=== PATIENT | female | born 1935 | race Caucasian/White ===

== ENCOUNTER 2017-11-25 10:19 | Day surgery (SDC) | payer OTHER ==
[~2017-11-25] VITALS: Ht 162.6 cm; Wt 56.8 kg
[~2017-11-25 10:19] MED LIST: AMLO10 PO; AMLO5 PO; ASPI325 PO; ASPI81CH PO; ATOR80 PO; CALCA500CH PO; CEPH500 PO; CLOP75 PO; EXTRA STRENGTH500 MG PO; FERR325 PO; FERROUS SULFATE PO; FURO40 PO; HYDHCL25 PO; METO50ER PO; MONT10T PO; MUPI2TC TOP; Micro-K10 MEQ PO; Novolin R100 UNIT/M SC; PANT40 PO; Prinivil10 MG PO; QVAR7.3 G1 INH; SACC250C PO; SPIR25 PO; THEO200ERA PO; TRAM50 PO; Ventolin Soln3 ML INH; ZANTAC PO
[2017-11-25] MEDS ORDERED: CLOP75 (11:29)
== END 2017-11-25 13:23 | disposition home or self-care (01) ==
LOC: ORSCSDS 10:19
PROVIDERS: Internal Medicine Gastroenterology
PROC: 0DBM8ZX Excision of Descending Colon, Via Natural or Artificial Opening Endoscopic, Diagnostic (ICD-10-PCS; principal; 2017-11-25 11:45)
PROC: 0DBL8ZX Excision of Transverse Colon, Via Natural or Artificial Opening Endoscopic, Diagnostic (ICD-10-PCS; principal; 2017-11-25 11:45)
PROC: 0DBN8ZX Excision of Sigmoid Colon, Via Natural or Artificial Opening Endoscopic, Diagnostic (ICD-10-PCS; principal; 2017-11-25 11:45)
PROC: 0DBB8ZX Excision of Ileum, Via Natural or Artificial Opening Endoscopic, Diagnostic (ICD-10-PCS; principal; 2017-11-25 11:45)
DX: Z85.038 Personal history of other malignant neoplasm of large intestine (principal); D12.5 Benign neoplasm of sigmoid colon; D12.4 Benign neoplasm of descending colon; K63.5 Polyp of colon; K64.8 Other hemorrhoids; D50.9 Iron deficiency anemia, unspecified; I10 Essential (primary) hypertension; E78.5 Hyperlipidemia, unspecified; J45.909 Unspecified asthma, uncomplicated; K21.9 Gastro-esophageal reflux disease without esophagitis; Z79.899 Other long term (current) drug therapy
CPT/HCPCS: 88305; J7120

== ENCOUNTER 2019-01-10 12:17 | Emergency (ER) | payer OTHER ==
[~2019-01-10] VITALS: Ht 165.1 cm; Wt 72.6 kg
[~2019-01-10 12:17] MED LIST changes: +CLOP75; -FERR325 PO; +IRON236 MG PO
[2019-01-10] MEDS ORDERED: THEO400ER PO (12:58)
[2019-01-10] MEDS ORDERED: Norco 5-325 Ta1 EACH PO (12:59)
[2019-01-10] MEDS ORDERED: Zantac150 MG PO (13:00)
[2019-01-10] MEDS ORDERED: ANTI-DIARR1 MG/7.5 M PO (13:01)
[2019-01-10] MEDS ORDERED: THERA1 EACH PO (13:03)
[2019-01-10] MEDS ORDERED: ASCO500 PO (13:03)
[2019-01-10] MEDS ORDERED: GABA300 PO ×2 (13:04→13:05)
[2019-01-10] MEDS ORDERED: Cyclobenzaprine5 MG PO (14:35)
== END 2019-01-10 15:30 | disposition home or self-care (01) ==
LOC: ER 12:17
DX: M25.551 Pain in right hip (principal); Z88.2 Allergy status to sulfonamides; Z79.899 Other long term (current) drug therapy; Z79.82 Long term (current) use of aspirin; Z79.4 Long term (current) use of insulin; D64.9 Anemia, unspecified; I12.9 Hypertensive chronic kidney disease with stage 1 through stage 4 chronic kidney disease, or unspecified chronic kidney disease; N18.3 Chronic kidney disease, stage 3 (moderate); K21.9 Gastro-esophageal reflux disease without esophagitis; E78.5 Hyperlipidemia, unspecified
CPT/HCPCS: 73502; 96372; 99283-25; J3010

== ENCOUNTER 2019-01-21 07:26 | Inpatient (IN) | payer OTHER ==
[~2019-01-21] VITALS: Ht 167.6 cm; Wt 61.2 kg
[~2019-01-21 07:26] MED LIST changes: +ALBU90OI INH; +ANTI-DIARR1 MG/7.5 M PO; +ASCO500 PO; +CALCIUM 600 +1 EA11 PO; +Cyclobenzaprine5 MG PO; +FURO20 PO; +GABA300 PO; +LISI20 PO; +Norco 5-325 Ta1 EACH PO; +ONE A DAY WOMENS PO; +POTCHL10ER PO; +QVAR REDIHALE10.6 G1 INH; +THEO400ER PO; +THERA1 EACH PO; +Toprol Xl50 MG PO; +Zantac150 MG PO
[2019-01-21] MEDS ORDERED: Zantac150 MG (08:11)
--- NOTE | 2019-01-21 08:15 | NUR ---
INTO SDS VIA WHEELCHAIR. PT UNABLE TO STAND FOR WEIGHT. PT REPORTS 5/10 RIGHT HIP PAIN. PT HEAVY ASSIST OUT OF WHEELCHAIR/TRANSFER TO BED. 2 PERSONS REQUIRED TO ASSIST PT WITH TRANSFER AND CHANGING. LUNGS CLEAR. PT DENIES SOB. SATS>90% ON RA. HISTORY AND ALLERGIES REVIEWED. NPO STATUS CONFIRMED. Patient reports completing Chlorhexadine shower X2 prior to admission to hospital.Surgical site prepped with 2% Chlorhexidine cloth wipe.NOSYN AND PERIDEX PER TOTAL HIP REPLACEMENT PROTOCOL. Pre-Op teaching done. Pt verbalizes understanding.
--- NOTE | 2019-01-21 08:19 | NUR ---
PT GIVEN PRE OP DOSE OF BOTH TYLENOL 1000 MG PO X 1 AND OXYCONTIN 10 MG PO X 1. KNEES ELEVATED ON PILLOW FOR PT COMFORT.
--- NOTE | 2019-01-21 09:03 | NUR ---
SBP TRENDING 200'S/90-100'S. PT STATES THAT SHE IS IN A GREAT DEAL OF PAIN AND FEELS THAT HER ELEVATED BP IS DUE TO PAIN. WILL NOTIFY .
[2019-01-21] MEDS ORDERED: Ferrous Sulfat325 M2 PO (15:24)
--- NOTE | 2019-01-21 19:03 | NUR ---
SHIFT SUMMARY PT A&OX4, VSS, POD#0 R JESSICA, AQUACEL CDI. PAIN MANAGED WITH 1 NORCO. RAFAL PO, DENIES N&V. UP TO CHAIR. PHYSICAL THERAPY EVAL'D. AMB W/FWW TO BRP. VOIDING WELL. REPORT GIVEN TO FREDDIE KLINE.
[2019-01-22 06:01] LABS: BASOPHILS ABSOLUTE AUTO 0.01 K/mm3 (0.00-0.23); BASOPHILS PERCENT AUTO 0 % (0-2); EOSINOPHILS PERCENT AUTO 0 % (0-6); Hematocrit 30.6 % (33.0-51.0); Hemoglobin 10.1 g/dL (11.5-16.0); IMMATURE GRAN ABSOLUTE AUTO 0.06 K/mm3 (0.00-0.10); IMMATURE GRAN PERCENT AUTO 1 % (0-1); LYMPHOCYTES ABSOLUTE AUTO 1.12 K/mm3 (0.84-5.20); LYMPHOCYTES PERCENT AUTO 9 % (21-46); MONOCYTES ABSOLUTE AUTO 1.05 K/mm3 (0.16-1.47); MONOCYTES PERCENT AUTO 9 % (4-13); Mean Corpuscular HGB 28.5 pg (26.0-34.0); Mean Platelet Volume 8.8 fL (9.1-12.4); NEUTROPHILS ABSOLUTE AUTO 9.91 K/mm3 (1.96-9.15); NEUTROPHILS PERCENT AUTO 82 % (41-73); Platelet Count 366 K/mm3 (150-400); RDW Coefficient Variation 13.5 % (11.7-14.2); RDW Standard Deviation 42.2 fL (35.1-46.3); Red Blood Cell Count 3.55 M/mm3 (3.80-5.20); White Blood Cell Count 12.15 K/mm3 (4.00-11.30)
[2019-01-22 06:02] LABS: Mean Corpuscular Volume 86 fL (80-100)
[2019-01-22 06:18] LABS: Anion Gap 10 mmol/L (6-16); Blood Urea Nitrogen 28 mg/dL (8-24); Bun/Creatinine Ratio 29.7 (12.0-20.0); CO2, Blood 23 mmol/L (21-32); Calcium, Blood 8.6 mg/dL (8.5-10.1); Chloride, Blood 103 mmol/L (98-108); Creatinine, Blood 0.94 mg/dL (0.40-1.00); Glomerular Filtration Rate >60 (60-); Glucose, Blood 144 mg/dL (70-99); Magnesium, Blood 2.1 mg/dL (1.6-2.4); Potassium, Blood 4.6 mmol/L (3.5-5.5); Sodium, Blood 136 mmol/L (136-145)
--- NOTE | 2019-01-22 06:44 | NUR ---
SUMMARY POD #1 R JESSICA DRSG REMAINS C/D/I. PT IS AMBULATING WITH 1 ASSIST, FWW, GAIT BELT. TOLERATING PO INTAKE. PAIN MANAGED WITH PO NORCO & TORADOL. VOIDING WNL.
--- NOTE | 2019-01-22 18:16 | NUR ---
SHIFT SUMMARY PAIN HAS BEEN MANAGED WITH PO PAIN MEDICATION THIS SHIFT. PT IS A 1 ASSIST WITH WALKER AND GAIT BELT WHEN OOB. VSS. PLAN FOR HOME TOMORROW AFTER AM THERAPY. WILL MONITOR UNTIL REPORT TO ONCOMING RN.
--- NOTE | 2019-01-23 07:14 | NUR ---
SHIFT SUMMARY RESTED SOMEWHAT OK, ABLE TO REPOSITION SELF IN BED. AMBULATED SELF TO BATHROOM SEVERAL TIME THIS SHIFT WITH STANDBY ASSIST. DENEIS PAIN OR DISCOMFORT AT THIS TIME. DRESSING TO RIGHT HIP IS C/D/I. DENIES FURTHER NEEDS AT THIS TIME. SAFETY MEASURES IN PLACE. WILL CONTINUE TO MONITOR.
[2019-01-23] MEDS ORDERED: Aspir 8181 MG (10:55)
--- NOTE | 2019-01-23 11:41 | NUR ---
DISCHARGE WRITTEN AND VERBAL DISCHARGE INSTRUCTIONS PROVIDED FOR PT AND FAMILY. THEY REPORTED UNDERSTANDING AFTER QUESTIONS WERE ANSWERED. DRESSINGS PROVIDED. PT ALERT ORIENTED AND CONTENT WITH DISCHARGE PLAN. PT ESCORTED OUT IN W/C BY GABRIELLA ASHLEY.
--- NOTE | 2019-01-24 13:14 | NUR ---
01/24/19 1314 Milla Mack VERIFICATIONS: EDIT CHART.
== END 2019-01-23 11:40 | disposition home or self-care (01) | DRG 470 ==
LOC: SURS 07:26 → PRE IP 09:00 → SURS 13:58
PROVIDERS: ADMIT Orthopaedic Surgery
PROC: 0SR90JZ Replacement of Right Hip Joint with Synthetic Substitute, Open Approach (ICD-10-PCS; principal; 2019-01-21 09:00)
PROC: 0SP904Z Removal of Internal Fixation Device from Right Hip Joint, Open Approach (ICD-10-PCS; 2019-01-21 09:00)
DX: M87.851 Other osteonecrosis, right femur (principal); I25.2 Old myocardial infarction; Z95.5 Presence of coronary angioplasty implant and graft; Z85.038 Personal history of other malignant neoplasm of large intestine; K21.9 Gastro-esophageal reflux disease without esophagitis; E78.5 Hyperlipidemia, unspecified; J45.909 Unspecified asthma, uncomplicated
CPT/HCPCS: 36415; 72170; 80048; 82947; 83735; 85025; 88305; 88311; 93005; 93010; 97110; 97116; 97161; 97530; A9270-GY; C1776; J0171; J0690; J0735; J1100; J1885; J2370; J2405; J2704; J2795; J3010; J7120

== ENCOUNTER 2019-04-29 09:03 | Day surgery (SDC) | payer OTHER ==
[~2019-04-29] VITALS: Ht 167.6 cm; Wt 61.0 kg
[~2019-04-29 09:03] MED LIST changes: +Aspir 8181 MG; +Ferrous Sulfat325 M2 PO; +Zantac150 MG
[2019-04-29] MEDS ORDERED: TRAM50 (09:46)
--- NOTE | 2019-04-29 16:55 | NUR ---
AMBULATED TO BATHROOM. TOLERATED WELL. NO BLEEDING RIGHT GROIN. SITE SOFT NONTENDER.
--- NOTE | 2019-04-29 17:10 | NUR ---
DISCHARGE INSTRUCTIONS GIVEN WITH WRITTEN AND VERBAL UNDERSTANDING.
--- NOTE | 2019-04-29 17:45 | NUR ---
IV REMOVED INTACT. 2X2, COBAN AND MANUAL PRESSURE HELD.
--- NOTE | 2019-04-29 18:05 | NUR ---
DISCHARGE HOME VIA WHEELCHAIR. DAUGHTER DRIVING.
== END 2019-04-29 17:45 | disposition home or self-care (01) ==
LOC: MHTC 09:03
DX: I25.10 Atherosclerotic heart disease of native coronary artery without angina pectoris (principal); T82.855A Stenosis of coronary artery stent, initial encounter; E11.9 Type 2 diabetes mellitus without complications; I10 Essential (primary) hypertension; Z79.02 Long term (current) use of antithrombotics/antiplatelets; Z79.899 Other long term (current) drug therapy; Z88.2 Allergy status to sulfonamides; Z88.8 Allergy status to other drugs, medicaments and biological substances
CPT/HCPCS: 76937; 93454; 99152; 99153; C1760; C1769; C1894; J1644; J2250; J3010; J7030; Q9967

== ENCOUNTER → 2020-07-23 | Outpatient (CLI) | payer OTHER ==
[~2020-07-23] MED LIST changes: +TRAM50
== END | disposition home or self-care (01) ==
LOC: PLD 12:25 → LAB SHORT 12:25
DX: C44.629 Squamous cell carcinoma of skin of left upper limb, including shoulder (principal)
CPT/HCPCS: 88305

== ENCOUNTER 2021-07-20 13:31 | Inpatient (IN) | payer OTHER ==
[~2021-07-20] VITALS: Ht 167.6 cm; Wt 70.8 kg
[2021-07-20 13:52] LABS: Base Excess Venous -6.5 mmol/L; Bicarbonate Venous 18.5 mmol/L (24.0-30.0); PCO2 Venous 46.8 mmHg (38-42); PO2 Venous 37.8 mmHg (38-42)
[2021-07-20 13:53] LABS: pH Blood Venous 7.25 (7.34-7.37)
[2021-07-20 14:08] LABS: BASOPHILS ABSOLUTE AUTO 0.02 K/mm3 (0.00-0.23); BASOPHILS PERCENT AUTO 0 % (0-2); EOSINOPHILS PERCENT AUTO 0 % (0-6); Hematocrit 40.6 % (33.0-51.0); Hemoglobin 13.3 g/dL (11.5-16.0); IMMATURE GRAN ABSOLUTE AUTO 0.09 K/mm3 (0.00-0.10); IMMATURE GRAN PERCENT AUTO 1 % (0-1); LYMPHOCYTES ABSOLUTE AUTO 2.89 K/mm3 (0.84-5.20); LYMPHOCYTES PERCENT AUTO 21 % (21-46); MONOCYTES ABSOLUTE AUTO 0.29 K/mm3 (0.16-1.47); MONOCYTES PERCENT AUTO 2 % (4-13); Mean Corpuscular HGB 29.1 pg (26.0-34.0); Mean Corpuscular HGB Conc 32.8 g/dL (31.5-36.5); Mean Corpuscular Volume 89 fL (80-100); Mean Platelet Volume 9.9 fL (9.1-12.4); NEUTROPHILS ABSOLUTE AUTO 10.53 K/mm3 (1.96-9.15); NEUTROPHILS PERCENT AUTO 76 % (41-73); Platelet Count 428 K/mm3 (150-400); RDW Coefficient Variation 13.2 % (11.7-14.2); RDW Standard Deviation 42.9 fL (35.1-46.3); Red Blood Cell Count 4.57 M/mm3 (3.80-5.20); White Blood Cell Count 13.82 K/mm3 (4.00-11.30)
[2021-07-20 14:38] LABS: Albumin, Blood 3.3 g/dL (3.4-5.0); Albumin/Globulin Ratio 0.8 (0.8-1.8); Bilirubin, Total 0.2 mg/dL (0.1-1.0); Bun/Creatinine Ratio 34.4 (12.0-20.0); Calcium, Blood 8.7 mg/dL (8.5-10.1); Creatinine, Blood 1.31 mg/dL (0.40-1.00); Globulin, Blood 3.9 g/dL (2.2-4.0); Magnesium, Blood 2.1 mg/dL (1.6-2.4); Potassium, Blood 4.9 mmol/L (3.5-5.5); Total Protein, Blood 7.2 g/dL (6.4-8.2); Troponin I 0.133 ng/mL (0.000-0.040)
[2021-07-20] MEDS ORDERED: LISI20 PO (14:51)
[2021-07-20] MEDS ORDERED: Norco 5-325 Ta1 EACH PO (14:53)
[2021-07-20 15:34] LABS: Influenza A, PCR NEGATIVE (NEGATIVE); Influenza B, PCR NEGATIVE (NEGATIVE); Resp Syncytial Virus, PCR NEGATIVE (NEGATIVE); SARS-Cov-2 (COVID-19) PCR, MMC NEGATIVE (NEGATIVE)
--- NOTE | 2021-07-20 18:38 | NUR ---
PT ARRIVAL/SHIFT SUMMARY PT ARRIVED TO UNIT FROM ED AT END OF SHIFT. PT ALERT AND ORIENTED. HR STABLE. BP STABLE. NO CP OR PRESSURE REPORTED. OXYGEN SATURATION MAINTAINED ABOVE 92% ON RA. PT ABLE TO TURN SELF IN BED NEEDED. WILL CONT TO MONITOR UNTIL REPORT GIVEN TO NIGHTSHIFT RN.
[2021-07-20 18:53] LABS: Anti-Xa UFH, PHA Monitoring <0.10 IU/mL; International Normalized Ratio 0.99; Prothrombin Time Results 10.4 Sec (9.7-11.5)
[2021-07-20 21:00] LABS: Source, Urine Clean Catch
[2021-07-20 21:03] LABS: Bilirubin, Urine Neg (Neg); Blood, Urine Neg (Neg); Glucose Qualitative, Urine Neg (Neg); Ketones, Urine Neg (Neg); Leukocyte Esterase, Urine 2+ (Neg); Nitrite, Urine Neg (Neg); Protein, Urine Neg (Neg); Urobilinogen, Urine NORM (Normal)
[2021-07-20 21:06] LABS: Appearance, Urine Clear (Clear); Color, Urine Pale Yellow (P-Yellow)
[2021-07-20 21:16] LABS: Bacteria Few /hpf; Red Blood Cells, Urine 0-2 /hpf (0-2); Squamous Epithelial Cells Few /hpf (Few)
[2021-07-20 21:17] LABS: Amorphous Light (0-Heavy); Mucus Light (0-Heavy)
[2021-07-21 02:00] LABS: BASOPHILS ABSOLUTE AUTO 0.01 K/mm3 (0.00-0.23); BASOPHILS PERCENT AUTO 0 % (0-2); EOSINOPHILS PERCENT AUTO 0 % (0-6); Hematocrit 34.2 % (33.0-51.0); Hemoglobin 11.6 g/dL (11.5-16.0); IMMATURE GRAN ABSOLUTE AUTO 0.06 K/mm3 (0.00-0.10); IMMATURE GRAN PERCENT AUTO 1 % (0-1); LYMPHOCYTES ABSOLUTE AUTO 1.33 K/mm3 (0.84-5.20); LYMPHOCYTES PERCENT AUTO 10 % (21-46); MONOCYTES ABSOLUTE AUTO 0.69 K/mm3 (0.16-1.47); MONOCYTES PERCENT AUTO 5 % (4-13); Mean Corpuscular HGB 29.4 pg (26.0-34.0); Mean Corpuscular HGB Conc 33.9 g/dL (31.5-36.5); Mean Corpuscular Volume 87 fL (80-100); Mean Platelet Volume 9.6 fL (9.1-12.4); NEUTROPHILS ABSOLUTE AUTO 10.88 K/mm3 (1.96-9.15); NEUTROPHILS PERCENT AUTO 84 % (41-73); Platelet Count 321 K/mm3 (150-400); RDW Coefficient Variation 13.3 % (11.7-14.2); RDW Standard Deviation 41.6 fL (35.1-46.3); Red Blood Cell Count 3.95 M/mm3 (3.80-5.20); White Blood Cell Count 12.97 K/mm3 (4.00-11.30)
--- NOTE | 2021-07-21 02:18 | NUR ---
PER PHARMACY HOLD HEPARIN 0220 TO 0320AM, RESTART PER PHARMACY ORDERS VIA ALICE PHARMACIST
[2021-07-21 02:25] LABS: Bun/Creatinine Ratio 40.8 (12.0-20.0); Calcium, Blood 9.2 mg/dL (8.5-10.1); Creatinine, Blood 1.2 mg/dL (0.40-1.00); Magnesium, Blood 2.2 mg/dL (1.6-2.4); Potassium, Blood 4.2 mmol/L (3.5-5.5)
--- NOTE | 2021-07-21 04:57 | NUR ---
PATIENT ADMITTED AT 1805 07/20 PRIOR TO SHIFT CHANGE, DAUGHTER AT BEDSIDE, ALERT AND ORIENTATED ABLE TO MAKE NEEDS KNOWN, CALL LIGHT WITHIN REACH, SITTING UP IN BED TALKING ON RA SATURATIONS > 95 RR 14-17, NO C/O OF CHEST DISCOMFORT, PATIENT HAS A RAC 20 GAUGE HEPARIN ORDERED AND STARTED, TROPONIN INCREASING NOT PEAKED YET, LAST TROPONIN 10.6 AT 0232 , MD WAS CALLED CARDIOLOGY CONSULT ORDER, CARDIOLOGY CALLED, EKG ORDERED FOR 0500 AND OBTAINED IN PAPER CHART, NEXT XA SCHEDULED FOR 1000, NEW ORDERED FOR FLEXERIL 5MG PO ONCE GIVEN FOR NERVE PAIN ABOVE THE LEFT KNEE POST STERIOD INJECTION, PATIENT C/O OF LOWER BACK PAIN TAKES OXYCODONE 5MG EVERY SIX HOURS AT HOME, RECEIVED NEW ORDER PRN. STORE PERSON PUTTING IN SECOND IV. PATIENT IS RESTING IN BED COMFORTABLY AND WCTM UNTIL CHANGE OF SHIFT, CHART ANY CHANGES IF ANY.
--- NOTE | 2021-07-21 06:34 | NUR ---
HTN THIS AM SBP> 160 GAVE HYDRALYZINE 10MG IVP, PATIENT REPORTING FEELING ANXIOUS.
--- NOTE | 2021-07-21 07:43 | NUR ---
EVENT NOTE ST CHANGES NOTED ON TELE WHILE GIVING HANDOFF REPORT. EKG OBTAINED AND COMPARED TO PREVIOUS. CONCERN FOR POSSIBLE STEMI DUE TO ST CHANGES. PT C/O "NAGGING PRESSURE" BUT DENIES SHORTNESS OF BREATH, RATES PRESSURE 3/10. VSS, PT DOES NOT APPEAR TO BE IN DISTRESS AT THIS TIME. NOTIFIED PRIMARY RN CINTHYA AND DAY SHIFT CHARGE NURSE SABRINA. COMMUNICATED CHANGES TO DR. LAO TO REVIEW FOR POSSIBLE PLAN FOR PRIMARY CARE NURSE PRACTITIONER. PT IS AWAITING ROUTINE CARDIOLOGY CONSULT AT THIS TIME. DR. LAO PLANS TO COME IN AND CONSENT FOR PRIMARY CARE NURSE PRACTITIONER IN 30-45 MINS, NURSING CLAY MOLDER NOTIFIED. PLAN FOR ICU TX AND NITRO GTT IF PRESSURE PERSISTS. ORDERS COMMUNICATED TO DAY SHIFT STAFF.
--- NOTE | 2021-07-21 07:44 | NUR ---
PT REPORTED 3/10 CHEST PRESSURE RIGHT AT START OF SHIFT. EKG CHANGES. VSS ON RA. NITRO PASTE APPLIED AND MD NOTIFIED. PT WILL BE TAKEN TO ENGINE PILOT 30-45 MIN. AFTER NITRO PASTE, PT REPORTS 1/10 CHEST PRESSURE. HEPARIN GTT IS RUNNING 12 UNITS/KG/HR.
--- NOTE | 2021-07-21 09:00 | NUR ---
critical trop level 8.26. Previous was 10.6. Pt currently in quality control lab tech
--- NOTE | 2021-07-21 12:37 | NUR ---
GROIN SITE WAS OOZING SOME AND THERE WAS AN AREA THAT FELT A LITTLE MORE FIRM, MD NOTIFIED AND FEM STOP WAS PLACED. 1100 WAS WHEN IT WAS PLACED. MONITORING FREQUENTLY FOR BLEEDING. PAIN IN BACK REPORTED, PRN OXY AND MORPHINE GIVEN WITH GOOD EFFECT.
[2021-07-21 15:35] LABS: Source, Urine Catheter
[2021-07-21 15:36] LABS: Appearance, Urine Clear (Clear); Bilirubin, Urine Neg (Neg); Blood, Urine 2+ (Neg); Color, Urine Yellow (P-Yellow); Glucose Qualitative, Urine 1+ (Neg); Ketones, Urine Neg (Neg); Leukocyte Esterase, Urine 1+ (Neg); Nitrite, Urine Neg (Neg); Protein, Urine 3+ (Neg); Specific Gravity, Urine 1.015 (1.003-1.022); Urobilinogen, Urine NORM (Normal)
[2021-07-21 15:51] LABS: Amorphous Mod (0-Heavy); Bacteria Many /hpf; Squamous Epithelial Cells Few /hpf (Few)
--- NOTE | 2021-07-21 18:08 | NUR ---
Pt is A&O, pleasant with cares. During bedside report pt reported chest pressure 3/10, EKG demonstrated ST changes. Cardiology was called and repeat EKG was done. Nitro paste applied and STAT Cath. No stents were placed. Femoral access site. There was oozing and some evidence of hematoma around insertion site, MD notified and femstop was placed. Femostop was completely removed at 3pm per MD orders and pt was slowly sat up. Same hard spot to the right of insertion site is present. No change in blood in dressing, outline drawn on dressing. Pt has chronic pain in hips, back and right knee, prn oxycodone and IV morphine given with good effect. Daughter and visited today. Pt tolerated dinner well. Heparin gtt was restarted at 1800 at 12units/kg/hr.
--- NOTE | 2021-07-21 18:13 | NUR ---
Pt has not reported chest pressure since heart cath.
[2021-07-22 01:32] LABS: BASOPHILS PERCENT AUTO 0 % (0-2); EOSINOPHILS PERCENT AUTO 0 % (0-6); Hematocrit 33.3 % (33.0-51.0); Hemoglobin 11.1 g/dL (11.5-16.0); IMMATURE GRAN ABSOLUTE AUTO 0.03 K/mm3 (0.00-0.10); IMMATURE GRAN PERCENT AUTO 0 % (0-1); LYMPHOCYTES ABSOLUTE AUTO 1.44 K/mm3 (0.84-5.20); LYMPHOCYTES PERCENT AUTO 16 % (21-46); MONOCYTES ABSOLUTE AUTO 0.65 K/mm3 (0.16-1.47); MONOCYTES PERCENT AUTO 7 % (4-13); Mean Corpuscular HGB 29.1 pg (26.0-34.0); Mean Corpuscular HGB Conc 33.3 g/dL (31.5-36.5); Mean Corpuscular Volume 87 fL (80-100); Mean Platelet Volume 9.8 fL (9.1-12.4); NEUTROPHILS PERCENT AUTO 77 % (41-73); Platelet Count 313 K/mm3 (150-400); RDW Coefficient Variation 13.6 % (11.7-14.2); RDW Standard Deviation 43.4 fL (35.1-46.3); Red Blood Cell Count 3.81 M/mm3 (3.80-5.20); White Blood Cell Count 9.32 K/mm3 (4.00-11.30)
[2021-07-22 01:57] LABS: Bun/Creatinine Ratio 40.5 (12.0-20.0); Calcium, Blood 8.5 mg/dL (8.5-10.1); Creatinine, Blood 1.26 mg/dL (0.40-1.00); Potassium, Blood 4.2 mmol/L (3.5-5.5)
--- NOTE | 2021-07-22 02:07 | NUR ---
CRITICAL TROPONIN OF 5.77 IN POST CATHPT, TRENDING DOWNWARD, EXPECTED RESULT, NOT NOTIFIED. RAISA ROCK
--- NOTE | 2021-07-22 05:53 | NUR ---
SHIFT SUMMARY: PT HAD RESTFUL NIGHT, NO C/O PAIN, HEPARIN GTT CONTINUES, ABLE TO VERBALIZE NEEDS. RIGHT GROIN ACCESS SITE WITH OLD DRIED DRAINAGE, NO NEW BLEEDING OR HEMATOMA FORMATION NOTED, PEDAL PULSE PALPABLE AND RIGHT FOOT/LEG WARM TO TOUCH.BED LOCKED AND LOW, CALL ALEXANDRE IN REACH. RAISA ROCK
--- NOTE | 2021-07-22 12:13 | NUR ---
NI D/C AT 1030, PT HAS ALREADY VOIDED.
--- NOTE | 2021-07-22 18:04 | NUR ---
Pt is A&O, pleasant with cares. VSS on RA, BP elevated in AM and PO meds given with good effect. In evening pt BP was elavated due to family conversations, BP went back down without prn. Heparin gtt was stopped in AM per Dr. Galan to make sure there was not a hematoma via US. Ultrasound done and heparin initiated after no evidence of hematoma found. Heparin gtt running 12units/kg/hr. [facility] was d/c today, and pt has been voiding at [facility] without difficulty. PT and OT assessed pt today. Pt ambulated in queen with FWW. PT recommended home w/ Home health services. Pt visited today. Groin site has bruise, but is nontender and soft. Per cardiology orders, heparin gtt will be d/c @0600.
[2021-07-23 02:09] LABS: BASOPHILS ABSOLUTE AUTO 0.02 K/mm3 (0.00-0.23); BASOPHILS PERCENT AUTO 0 % (0-2); EOSINOPHILS ABSOLUTE AUTO 0.01 K/mm3 (0.00-0.68); EOSINOPHILS PERCENT AUTO 0 % (0-6); Hematocrit 37.5 % (33.0-51.0); Hemoglobin 12.6 g/dL (11.5-16.0); IMMATURE GRAN ABSOLUTE AUTO 0.09 K/mm3 (0.00-0.10); IMMATURE GRAN PERCENT AUTO 1 % (0-1); LYMPHOCYTES ABSOLUTE AUTO 2.43 K/mm3 (0.84-5.20); LYMPHOCYTES PERCENT AUTO 20 % (21-46); MONOCYTES ABSOLUTE AUTO 1.05 K/mm3 (0.16-1.47); MONOCYTES PERCENT AUTO 9 % (4-13); Mean Corpuscular HGB 29.2 pg (26.0-34.0); Mean Corpuscular HGB Conc 33.6 g/dL (31.5-36.5); Mean Corpuscular Volume 87 fL (80-100); Mean Platelet Volume 9.6 fL (9.1-12.4); NEUTROPHILS ABSOLUTE AUTO 8.41 K/mm3 (1.96-9.15); NEUTROPHILS PERCENT AUTO 70 % (41-73); Platelet Count 364 K/mm3 (150-400); RDW Coefficient Variation 13.3 % (11.7-14.2); Red Blood Cell Count 4.31 M/mm3 (3.80-5.20); White Blood Cell Count 12.01 K/mm3 (4.00-11.30)
[2021-07-23 02:23] LABS: Bun/Creatinine Ratio 40.2 (12.0-20.0); Calcium, Blood 9.1 mg/dL (8.5-10.1); Creatinine, Blood 1.32 mg/dL (0.40-1.00)
[2021-07-23] MEDS ORDERED: FURO20 PO (11:22)
[2021-07-23] MEDS ORDERED: ASPI81CH PO (11:23)
--- NOTE | 2021-07-23 12:17 | NUR ---
Pt is A&Ox4, pleasant with cares. VSS on RA, BP elevated in AM, scheduled meds given. Tele: SR/ST 80-90s. Femoral site is bruised, but nontender and soft. Femoral site d/c instructions discussed with pt. Pt daughter provided ride home.
== END 2021-07-23 14:07 | disposition home health service (06) | DRG 280 ==
LOC: ER 13:31 → PCU 16:33 → ERHOLD 16:33 → PCU 18:00
PROVIDERS: Family Medicine; Nurse Practitioner Acute Care; Student in an Organized Health Care Education/Training Program; ADMIT Internal Medicine
PROC: 4A023N7 Measurement of Cardiac Sampling and Pressure, Left Heart, Percutaneous Approach (ICD-10-PCS; principal; 2021-07-21)
PROC: B2111ZZ Fluoroscopy of Multiple Coronary Arteries using Low Osmolar Contrast (ICD-10-PCS; 2021-07-21)
DX: I21.29 ST elevation (STEMI) myocardial infarction involving other sites (principal); J96.01 Acute respiratory failure with hypoxia; I50.33 Acute on chronic diastolic (congestive) heart failure; I13.0 Hypertensive heart and chronic kidney disease with heart failure and stage 1 through stage 4 chronic kidney disease, or unspecified chronic kidney disease; J44.1 Chronic obstructive pulmonary disease with (acute) exacerbation; T82.855A Stenosis of coronary artery stent, initial encounter; Z66 Do not resuscitate; Z20.822 Contact with and (suspected) exposure to COVID-19; E11.65 Type 2 diabetes mellitus with hyperglycemia; E11.22 Type 2 diabetes mellitus with diabetic chronic kidney disease; I25.110 Atherosclerotic heart disease of native coronary artery with unstable angina pectoris; R82.71 Bacteriuria; B96.20 Unspecified Escherichia coli [E. coli] as the cause of diseases classified elsewhere; I34.0 Nonrheumatic mitral (valve) insufficiency; I25.5 Ischemic cardiomyopathy; N18.30 Chronic kidney disease, stage 3 unspecified; D63.1 Anemia in chronic kidney disease; K21.9 Gastro-esophageal reflux disease without esophagitis; E78.5 Hyperlipidemia, unspecified; Z90.89 Acquired absence of other organs; Z98.890 Other specified postprocedural states; Z88.2 Allergy status to sulfonamides; Z88.8 Allergy status to other drugs, medicaments and biological substances; Z79.02 Long term (current) use of antithrombotics/antiplatelets; Z79.82 Long term (current) use of aspirin; Z79.899 Other long term (current) drug therapy; Y83.1 Surgical operation with implant of artificial internal device as the cause of abnormal reaction of the patient, or of later complication, without mention of misadventure at the time of the procedure
CPT/HCPCS: 0241U; 36415; 71045; 76937; 80048; 80053; 81001; 82803; 82947; 83036; 83735; 83880; 84145; 84484; 85025; 85347; 85520; 85610; 87077; 87086; 87186; 93005; 93010; 93306; 93454; 93926; 94644; 94660; 94664; 94667; 94760; 94762; 96365; 96366; 96375; 97110; 97162; 97165; 97530; 97535; 98960; 99152; 99153; 99285-25; A9270; C1751; C1760; C1769; C1887; C1894; J0360; J1644; J1940; J2250; J2270; J2370; J3010; J7030; J7050; Q9967

== ENCOUNTER → 2021-09-13 | Outpatient (CLI) | payer OTHER, MEDICARE ==
[2021-09-13 16:42] LABS: Bun/Creatinine Ratio 29.9 (12.0-20.0); Calcium, Blood 9.1 mg/dL (8.5-10.1); Creatinine, Blood 1.34 mg/dL (0.40-1.00); Potassium, Blood 4.9 mmol/L (3.5-5.5)
== END ==
LOC: LAB SHORT 14:57
PROVIDERS: Family Medicine
DX: I50.9 Heart failure, unspecified (principal); N18.32 Chronic kidney disease, stage 3b
CPT/HCPCS: 80048; 83880